=== PATIENT | male | born 1945 | race Hispanic/Latino ===

== ENCOUNTER 2018-03-21 09:44 | Day surgery (SDC) | payer MEDICARE ==
[2018-03-10 13:55] VITALS: BMI 26.1
[2018-03-21] MEDS ORDERED: Propofol 10 mg/ml Inj (20 ML) ONE (11:46)
[2018-03-21] MEDS ORDERED: Sodium Chloride 0.9% 1,000 ML IV SCH (12:45)
[2018-03-21 13:14] VITALS: PULSE 62
[2018-03-21 14:22] VITALS: BP 122/66; RESP 20; TEMP 97.9; O2SAT 98
== END 2018-03-21 14:11 | disposition home or self-care (01) ==
LOC: ENDO 09:44
PROVIDERS: ATTEND Internal Medicine Gastroenterology
DX: D12.0 Benign neoplasm of cecum (principal); D50.9 Iron deficiency anemia, unspecified; K20.9 Esophagitis, unspecified; K44.9 Diaphragmatic hernia without obstruction or gangrene; K29.50 Unspecified chronic gastritis without bleeding; B96.81 Helicobacter pylori [H. pylori] as the cause of diseases classified elsewhere; K64.8 Other hemorrhoids; E11.9 Type 2 diabetes mellitus without complications; I10 Essential (primary) hypertension
CPT/HCPCS: 43239; 45384; 82948; 88305; 88342; J2704; J7030; J7040

== ENCOUNTER 2018-08-28 07:59 | Day surgery (SDC) | payer MEDICARE ==
[2018-03-10 13:55] VITALS: BMI 26.1
[2018-08-28] MEDS ORDERED: Sodium Chloride 0.9% 1,000 ML IV SCH (10:00)
[2018-08-28] MEDS ORDERED: Propofol 10 mg/ml Inj (20 ML) ONE (10:26)
[2018-08-28 11:33] VITALS: PULSE 60
[2018-08-28 15:49] VITALS: BP 130/74; RESP 16; TEMP 97.6; O2SAT 100
== END 2018-08-28 12:18 | disposition home or self-care (01) ==
LOC: ENDO 07:59
PROVIDERS: ATTEND Internal Medicine Gastroenterology
DX: K21.0 Gastro-esophageal reflux disease with esophagitis (principal); K22.10 Ulcer of esophagus without bleeding; K29.50 Unspecified chronic gastritis without bleeding; B96.81 Helicobacter pylori [H. pylori] as the cause of diseases classified elsewhere; E11.9 Type 2 diabetes mellitus without complications; I10 Essential (primary) hypertension
CPT/HCPCS: 43239; 82948; 88305; 88312; 88342; J2001; J2704; J7030